=== PATIENT | female | born 1980 | race Caucasian/White ===

== ENCOUNTER → 2017-08-10 | Emergency (ER) | payer BC | END | disposition left against medical advice (07) | LOC: ER 17:29 | DX: Z53.21 Procedure and treatment not carried out due to patient leaving prior to being seen by health care provider (principal) ==

== ENCOUNTER → 2017-12-03 | Outpatient (CLI) | payer BC ==
--- NOTE | 2017-12-04 13:08 | MRI ---
EXAM DESCRIPTION: Lumbar Spine w/o Contrast MRI. CLINICAL HISTORY: PAIN COMPARISON: MRI lumbar spine 11/14/2011. 3 view lumbar radiographs 03/15/2014. TECHNIQUE: Multiplanar, multiple standard sequences, non contrast MRI, lumbar spine. FINDINGS: L4-5: Posterior broad-based 4 mm disc bulge with posterior midline bright T2 signal annular fissure impressing on the thecal sac. Minimal bilateral flavum ligament hypertrophy impressing on the lateral thecal sac. Bilaterally shortened pedicles. Moderate canal narrowing. Moderate right foraminal narrowing and mild left foraminal narrowing. L5-S1: Minimal disc desiccation and minimal disc space loss. No bulging anterior or posterior. Mild to moderate right foraminal narrowing with left foramen patent. Bilateral shortened pedicles and mild canal narrowing. L3-4: Normal signal in the disc and normal disc space. Minimal bilateral flavum ligament hypertrophy. Bilaterally shortened pedicles. Mild canal narrowing. Disc bulge into the right foramen which is minimally narrowed. L2-3: Normal signal in the disc and normal disc space. Posterior elements are unremarkable. Canal and foramina are patent. L1-2: Minimal disc desiccation. Normal disc space with no posterior bulging. Posterior elements unremarkable. Canal and foramina are patent. T12-L1: Normal signal in the disc and normal disc space. No bulging. Posterior elements unremarkable. Canal and foramina are patent. Conus terminates at this level.: Anatomic curvature of the spine without scoliosis. Paravertebral soft tissues unremarkable.. Normal marrow signal in the remaining vertebral bodies and the posterior elements. Vertebral bodies are not compressed at any level. IMPRESSION: 1. Posterior L4-5 disc bulge with midline annular fissure and moderate canal narrowing. Disc is desiccated. This is progressed since the prior study. Congenitally shortened pedicles. No canal or foraminal stenosis. 2. L5-S1 disc desiccation and minimal disc space loss. Minimal canal narrowing. Bilateral shortened pedicles. No significant foraminal narrowing. 3. L3-4 disc bulge into the right foramen with minimal narrowing. No canal or foraminal stenosis. Electronically signed by: Jos Denton MD 12/04/2017 1:07 PM CDT
== END ==
LOC: MRI 13:00
PROVIDERS: ATTEND Nurse Practitioner Family
DX: G62.9 Polyneuropathy, unspecified (principal); M51.26 Other intervertebral disc displacement, lumbar region

== ENCOUNTER → 2018-07-29 | Outpatient (CLI) | payer BC ==
--- NOTE | 2018-07-29 15:39 | US ---
EXAM DESCRIPTION: Soft Tissue,Abdomen: ULTRASOUND. CLINICAL HISTORY: R22.9. Soft tissue mass in the right rib cage. "Has been there a year, size and appearance of the right superior. Last week tripled in size with pain and redness." COMPARISON: None. TECHNIQUE: Transabdominal scannin-dimensional and Doppler modes. FINDINGS: 1.4 x 1.6 x 0.9 cm complex cyst corresponds to palpable lesion in the right rib cage with circumscribed and lobulated margins, parallel orientation and posterior enhancement features. Nonvascular. No distinct solid mass. No parenchymal edema or large calcifications. IMPRESSION: 1.6 cm complex cyst in the right rib cage correlating with palpable lesion on the scan. Differential includes subcutaneous cyst, liquefying hematoma, or abscess. Electronically signed by: Jos Denton MD 07/29/2018 3:38 PM [facility]
== END ==
LOC: US 13:37
PROVIDERS: ATTEND Nurse Practitioner Family
DX: R22.2 Localized swelling, mass and lump, trunk (principal)